=== PATIENT | female | born 1995 | race Caucasian/White ===

== ENCOUNTER 2018-07-10 13:03 | Emergency (ER) | payer SELFPAY ==
--- NOTE | 2018-07-10 13:08 | ER Report ---
History and Physical Time Seen By MD: 13:09 HPI/ROS This is a 22-year-old female otherwise healthy with no previous pregnancies who presents to the emergency department with menses like cramping pelvic pain and a positive home test. She denies any vaginal bleeding. Her last menstrual period was 06/11/2018. She has not had a previous ectopic, never had PID, and does not have an IUD in place. She states that the cramping pelvic pain feels like a menstrual cramp. It is worse at night. She called her primary care physician who counseled her to come to the emergency department for evaluation. Remainder of the 14 system rev: Yes Allergies: Coded Allergies: No Known Drug Allergies (Unverified , 07/10/18) Home Meds No Active Prescriptions or Reported Meds Reviewed Nurses Notes: Yes Old Medical Records Reviewed: Yes Hx Smoking: No Smoking Status: Never Smoker Exposure to Second Hand Smoke?: No Hx Substance Use Disorder: No Hx Alcohol Use: No Constitutional Vital Sign - Last 24 Hours 07/10/18 07/10/18 07/10/18 07/10/18 13:09 13:12 13:18 13:30 Temp 98.4 Pulse 117 103 Resp 18 B/P (MAP) 135/83 135/83 (100) 120/83 (95) Pulse Ox 97 99 O2 Delivery Room Air 07/10/18 07/10/18 07/10/18 07/10/18 13:33 13:48 14:00 14:03 Pulse 102 99 93 B/P (MAP) 108/72 (84) Pulse Ox 98 98 99 07/10/18 07/10/18 07/10/18 07/10/18 14:18 14:33 14:48 14:53 Pulse ? 07/10/18 07/10/18 07/10/18 07/10/18 15:08 15:23 15:38 15:53 Pulse ? 07/10/18 07/10/18 07/10/18 16:08 16:23 16:38 Pulse ? Physical Exam General Appearance: The patient is alert, has no immediate need for airway protection and no current signs of toxicity. Eyes: Pupils equal and round no injection. Respiratory: Chest is non tender, lungs are clear to auscultation. Cardiac: regular rate and rhythm Gastrointestinal: Abdomen is soft and non tender, no masses, bowel sounds normal. Extremities have full range of motion and are non tender. Skin: No rashes or lesions. DIFFERENTIAL DIAGNOSIS: After history and physical exam differential diagnosis was considered for ectopic , abdominal infection, IUP. UTI Medical Decision Making Data Points Result Diagram: 07/10/18 1356 07/10/18 1356 Laboratory Hematology Test 07/10/18 13:13 07/10/18 13:56 Urine Color Yellow Urine Clarity Slightly-cloudy Urine pH 5.0 pH (4.8-9.5) Urine Specific [place] 1.019 Urine Protein Negative mg/dL (NEGATIVE) Urine Glucose (UA) Negative mg/dL (NEGATIVE) Urine Ketones Trace mg/dL (NEGATIVE) Urine Blood Small (NEGATIVE) Urine Nitrite Negative (NEGATIVE) Urine Bilirubin Negative (NEGATIVE) Urine Urobilinogen 2.0 mg/dL (0.2-1.9) Urine Leukocyte Esterase Trace (NEGATIVE) Urine RBC 2 /HPF (0-2/HPF) Urine WBC 1 /HPF (0-5/HPF) Urine Squamous Epithelial Cells Many /LPF (</=FEW) Urine Bacteria Few /HPF (NONE-FEW) Urine Mucus Few /HPF (NONE-FEW) Red Blood Count 4.64 M/uL (4.17-5.56) Mean Corpuscular Volume 95.7 fL (80.0-96.0) Mean Corpuscular Hemoglobin 32.9 pg (26.0-33.0) Mean Corpuscular Hemoglobin Concent 34.4 g/dL (32.0-36.0) Red Cell Distribution Width 13.0 % (11.5-14.5) Mean Platelet Volume 7.0 fL (7.2-11.1) Neutrophils (%) (Auto) 77.9 % (39.4-72.5) Lymphocytes (%) (Auto) 17.0 % (17.6-49.6) Monocytes (%) (Auto) 4.6 % (4.1-12.4) Eosinophils (%) (Auto) 0.2 % (0.4-6.7) Basophils (%) (Auto) 0.3 % (0.3-1.4) Nucleated RBC Relative Count (auto) 0.0 /100WBC Neutrophils # (Auto) 7.0 K/uL (2.0-7.4) Lymphocytes # (Auto) 1.5 K/uL (1.3-3.6) Monocytes # (Auto) 0.4 K/uL (0.3-1.0) Eosinophils # (Auto) 0.0 K/uL (0.0-0.5) Basophils # (Auto) 0.0 K/uL (0.0-0.1) Nucleated RBC Absolute Count (auto) 0.00 K/uL Sodium Level 142 mmol/L (137-145) Potassium Level 3.2 mmol/L (3.5-5.0) Chloride Level 105 mmol/L (98-107) Carbon Dioxide Level 23 mmol/L (22-31) Blood Urea Nitrogen 10 mg/dl (7-18) Creatinine 0.70 mg/dl (0.52-1.04) Glomerular Filtration Rate Calc > 60.0 Random Glucose 96 mg/dl (75-110) Calcium Level 10.1 mg/dl (8.4-10.2) Total Bilirubin 0.2 mg/dl (0.2-1.3) Aspartate Amino Transf (AST/SGOT) 22 U/L (0-35) Alanine Aminotransferase (ALT/SGPT) 26 U/L (0-56) Alkaline Phosphatase 63 U/L (0-126) Total Protein 7.7 g/dl (6.3-8.2) Albumin 4.7 g/dl (3.5-5.0) Human Chorionic Gonadotropin, Quant 700 mIU/ml Chemistry Test 07/10/18 13:13 07/10/18 13:56 Urine Color Yellow Urine Clarity Slightly-cloudy Urine pH 5.0 pH (4.8-9.5) Urine Specific [place] 1.019 Urine Protein Negative mg/dL (NEGATIVE) Urine Glucose (UA) Negative mg/dL (NEGATIVE) Urine Ketones Trace mg/dL (NEGATIVE) Urine Blood Small (NEGATIVE) Urine Nitrite Negative (NEGATIVE) Urine Bilirubin Negative (NEGATIVE) Urine Urobilinogen 2.0 mg/dL (0.2-1.9) Urine Leukocyte Esterase Trace (NEGATIVE) Urine RBC 2 /HPF (0-2/HPF) Urine WBC 1 /HPF (0-5/HPF) Urine Squamous Epithelial Cells Many /LPF (</=FEW) Urine Bacteria Few /HPF (NONE-FEW) Urine Mucus Few /HPF (NONE-FEW) White Blood Count 8.9 k/uL (4.5-11.0) Red Blood Count 4.64 M/uL (4.17-5.56) Hemoglobin 15.3 g/dL (12.0-16.0) Hematocrit 44.5 % (34.0-47.0) Mean Corpuscular Volume 95.7 fL (80.0-96.0) Mean Corpuscular Hemoglobin 32.9 pg (26.0-33.0) Mean Corpuscular Hemoglobin Concent 34.4 g/dL (32.0-36.0) Red Cell Distribution Width 13.0 % (11.5-14.5) Platelet Count 273 K/uL (150-450) Mean Platelet Volume 7.0 fL (7.2-11.1) Neutrophils (%) (Auto) 77.9 % (39.4-72.5) Lymphocytes (%) (Auto) 17.0 % (17.6-49.6) Monocytes (%) (Auto) 4.6 % (4.1-12.4) Eosinophils (%) (Auto) 0.2 % (0.4-6.7) Basophils (%) (Auto) 0.3 % (0.3-1.4) Nucleated RBC Relative Count (auto) 0.0 /100WBC Neutrophils # (Auto) 7.0 K/uL (2.0-7.4) Lymphocytes # (Auto) 1.5 K/uL (1.3-3.6) Monocytes # (Auto) 0.4 K/uL (0.3-1.0) Eosinophils # (Auto) 0.0 K/uL (0.0-0.5) Basophils # (Auto) 0.0 K/uL (0.0-0.1) Nucleated RBC Absolute Count (auto) 0.00 K/uL Glomerular Filtration Rate Calc > 60.0 Calcium Level 10.1 mg/dl (8.4-10.2) Total Bilirubin 0.2 mg/dl (0.2-1.3) Aspartate Amino Transf (AST/SGOT) 22 U/L (0-35) Alanine Aminotransferase (ALT/SGPT) 26 U/L (0-56) Alkaline Phosphatase 63 U/L (0-126) Total Protein 7.7 g/dl (6.3-8.2) Albumin 4.7 g/dl (3.5-5.0) Human Chorionic Gonadotropin, Quant 700 mIU/ml Urinalysis Test 07/10/18 13:13 Urine Color Yellow Urine Clarity Slightly-cloudy Urine pH 5.0 pH (4.8-9.5) Urine Specific [place] 1.019 Urine Protein Negative mg/dL (NEGATIVE) Urine Glucose (UA) Negative mg/dL (NEGATIVE) Urine Ketones Trace mg/dL (NEGATIVE) Urine Blood Small (NEGATIVE) Urine Nitrite Negative (NEGATIVE) Urine Bilirubin Negative (NEGATIVE) Urine Urobilinogen 2.0 mg/dL (0.2-1.9) Urine Leukocyte Esterase Trace (NEGATIVE) Urine RBC 2 /HPF (0-2/HPF) Urine WBC 1 /HPF (0-5/HPF) Urine Squamous Epithelial Cells Many /LPF (</=FEW) Urine Bacteria Few /HPF (NONE-FEW) Urine Mucus Few /HPF (NONE-FEW) ED Course/Re-evaluation ED Course 22-year-old female with a positive home test and subsequently a quantitative HCG in the s in the emergency department. She has no ectopic risk factors. No vaginal bleeding, and pain is described as similar to menstrual cramps. A pelvic ultrasound reveals no evidence of an ectopic and sees a possible small gestational sac in the uterus, however no confirmed IUP at this time. The ultrasound findings are consistent with her last menstrual period as well as her quantitative hCG. I do not think she is at high risk for an ectopic , however I told her an ectopic was not ruled out at this point. I counseled her to return to the emergency department if her pain worsens or if she develops vaginal bleeding greater than a normal menstrual period. She is otherwise going to get a repeat quantitative HCG on Friday. She will follow-up with those results with the [facility]. I counseled her to buy [id number] vitamins, abstain from alcohol, and drink plenty of fluids. Decision to Disposition Date: Jul 10, 2018 Decision to Disposition Time: 17:01 Depart Departure Latest Vital Signs Vital Signs Date Time Temp Pulse Resp B/P (MAP) Pulse Ox O2 Delivery O2 Flow Rate FiO2 07/10/18 16:38 ??? 07/10/18 14:03 99 07/10/18 14:00 108/72 (84) 07/10/18 13:09 98.4 18 Room Air Impression: Primary Impression: Pelvic pain during in first trimester, antepartum Condition: Improved Disposition: HOME OR SELF-CARE New Scripts No Active Prescriptions or Reported Meds Patient Instructions: First Trimester (ED) LACHO SOUZA MD Jul 10, 2018 13:08
[2018-07-10] MEDS ORDERED: NS(*) 0.9% 1000 ML BAG 1,000 ML IV ONE (13:35)
[2018-07-10 14:00] VITALS: BP 108/72
[2018-07-10 14:04] LABS: PLATELET COUNT, AUTOMATED 273 K/uL (150-450)
--- NOTE | 2018-07-10 15:52 | RADIOLOGY IMAGING REPORT ---
FACILITY: [facility] - [place] PATIENT NAME: Lisa Orlando : 1995 MR: [id number] V: [id number] EXAM DATE: ORDERING PHYSICIAN: LACHO SOUZA TECHNOLOGIST: Location: [facility] - [place] Patient: Lisa Orlando : 1995 Visit/Account:[id number] Date of Sevice: 07/10/2018 Exam type: OB TRANSVAGINAL History: Abdomen pain, quantitative hCG level of 700 Comparison: None. Findings: There is a thickened heterogeneous endometrium measuring 1.2 cm in thickness. There is a double wall sac within the endometrium with a mean sac diameter of 2.3 mm which would be consistent with a gesta tional age of four weeks and five days. A pole or yolk sac are not identified. There is a mild amount of free pelvic fluid. Right ovary measures 3 x 2.4 x 3.4 cm and contains a slightly prevascular 1.9 x 1.8 x 1.8 cm slightly hypoechoic solid appearing structure. Left ovary measures 2.2 x 1.7 x 2.9 cm. Arterial and venous flow was demonstrated to both ovary. IMPRESSION: 1. There Is heterogeneous thickened endometrium containing a double walled sac with a mean sac diamet er of 2.3 mm. This would be consistent with a gestational age of four weeks and five days however fe joy pole and yolk sac are not identified. Continued surveillance of patient's hCG level and a follow -up pelvic ultrasound is recommended to sure an intrauterine gestation. Small amount of free pelvic fluid 1.9 cm slightly hypoechoic mildly hypervascular structure in the right ovary. This is not likely an ectopic however since viable IUP has not yet been continued follow-up recommended Report Dictated By: Samira Michel MD at 07/10/2018 3:38 PM Report E-Signed By: Samira Michel MD at 07/10/2018 3:48 PM WSN:[email or web address]
== END 2018-07-10 17:10 | disposition home or self-care (01) ==
LOC: ER 13:15
DX: O26.891 Other specified pregnancy related conditions, first trimester (principal)
CPT/HCPCS: 36415; 76817; 81001; 82040; 82247; 82310; 82374; 82435; 82565; 82947; 84075; 84132; 84155; 84295; 84450; 84460; 84520; 84702; 85025

== ENCOUNTER → 2018-07-24 | Outpatient (CLI) | payer SELFPAY ==
[~2018-07-24] MED LIST: PREN-127 PO; SODI1TAB2 PO
[2018-07-24 10:36] LABS: PLATELET COUNT, AUTOMATED 259 K/uL (150-450)
== END ==
LOC: LAB 08:43
PROVIDERS: ATTEND Obstetrics & Gynecology
DX: Z34.91 Encounter for supervision of normal pregnancy, unspecified, first trimester (principal); O26.891 Other specified pregnancy related conditions, first trimester
CPT/HCPCS: 36415; 81001; 84702; 85025; 86592; 86703; 86762; 86850; 86900; 86901; 87088; 87340

== ENCOUNTER → 2018-07-27 | Outpatient (CLI) | payer SELFPAY ==
--- NOTE | 2018-07-27 14:03 | RADIOLOGY IMAGING REPORT ---
FACILITY: [facility] - [place] PATIENT NAME: Lisa Orlando : 1995 MR: [id number] V: [id number] EXAM DATE: ORDERING PHYSICIAN: JAVIER IVERSON TECHNOLOGIST: Location: [facility] Patient: Lisa Orlando : 1995 Visit/Account:[id number] Date of Sevice: 07/27/2018 Transvaginal OB Ultrasound HISTORY: INCONCULSIVE VIABILITY, PELVIC PAIN COMPARISON: July 10, 2018 TECHNIQUE: Transvaginal imaging was performed for detailed assessment of the uterus, , and o varies. FINDINGS: Gestational sac: Single, intrauterine, and unremarkable Yolk sac: Visualized. Embryo: Visualized. Embryonic cardiac activity: 120 bpm Estimated gestational age by LMP. LMP not provided Ultrasound age: crown-rump length is six weeks and three days Subchorionic hemorrhage: None visualized. Uterus: Gravid, otherwise unremarkable. Maternal ovaries: Right ovary measures 1.78 x 2.81 x 1.64 cm. Vascular flow is demonstrated to the r ight ovary.. In the right ovary there is a 1.9 x 1.5 x 1.6 cm isoechoic mass with peripheral vascula rity appears slightly less prominent when compared the prior study Left ovary measures 2.4 x 3.4 x 1.1 cm with normal vascular flow Adnexa: Negative Free pelvic fluid: None. IMPRESSION: There is a single viable intrauterine with an estimated gestational age of six weeks and th ree days by crown-rump length There is a 1.9 x 1.5 x 1.6 and meter isoechoic mass with peripheral vascularity in the right ovary ap pears slightly less prominent when compared the prior study Report Dictated By: Samira Michel MD at 07/27/2018 1:47 PM Report E-Signed By: Samira Michel MD at 07/27/2018 1:59 PM WSN:[email or web address]
== END ==
LOC: RAD 09:44
PROVIDERS: ATTEND Obstetrics & Gynecology
DX: N83.9 Noninflammatory disorder of ovary, fallopian tube and broad ligament, unspecified (principal)

== ENCOUNTER 2018-08-10 01:19 | Emergency (ER) | payer SELFPAY ==
[2018-08-10] MEDS ORDERED: KETOROLAC 15 MG/ML VIAL IVP ONE (01:40)
--- NOTE | 2018-08-10 01:49 | ER Report ---
History and Physical Time Seen By MD: 01:25 Hx. of Stated Complaint: MISCARRAIGE HPI/ROS CHIEF COMPLAINT: miscarriage HISTORY OF PRESENT ILLNESS: Pt started with vaginal bleeding on 07/30 and has been followed by Dr. Manning for threatened . Pt has been getting multiple US. last us was 08/06 which showed a slowing heart rate of 90-100. PT tonight started with severe cramping. Went to bathroom and passed some clots then passed a clear sac that appeared to contain baby. Pt came to ed with the contents . still with cramping and passing clots similar to "a bad period". REVIEW OF SYSTEMS: Constitutional: No fever, no chills. Eyes: No discharge. ENT: No sore throat. Cardiovascular: No chest pain, no palpitations. Respiratory: No cough, no shortness of breath. Gastrointestinal: + abdominal pain, + vaginal bleeding, no vomiting. Genitourinary: No hematuria. Musculoskeletal: No back pain. Skin: No rashes. Neurological: No headache. Allergies: Coded Allergies: No Known Drug Allergies (Unverified , 08/10/18) Home Meds Reported Medications Sodium Bicarbonate/Sodium Cit (MAE-SELTZER HEARTBURN TAB EFF) 1 Each Tablet.eff, 1 EACH PO 07/24/18 Vits W-Ca,Fe,Fa(<1MG) ( VITAMINS) 1 Each Tablet, 1 EACH PO DAILY, TAB 07/24/18 Past Medical/Surgical History pmhx: adhd, anemia Pshx: plastic surgery secondary to dog bite Reviewed Nurses Notes: Yes Old Medical Records Reviewed: Yes Hx Smoking: No Smoking Status: Current: Every Day Smoker Exposure to Second Hand Smoke?: Yes Hx Substance Use Disorder: No Hx Alcohol Use: No Constitutional Vital Sign - Last 24 Hours 08/10/18 08/10/18 08/10/18 08/10/18 01:19 01:29 01:30 01:34 Temp 98.1 Pulse ??? 89 ??? Resp 18 B/P (MAP) 117/77 117/77 (90) Pulse Ox 93 99 O2 Delivery Room Air Physical Exam General Appearance: The patient is alert, has no immediate need for airway protection and no signs of toxicity. Eyes: Pupils equal and round no pallor or injection, EOMI ENT: no pharyngeal erythema or exudates, Mucous membranes are moist Respiratory: There are no retractions, lungs are clear to auscultation. Cardiovascular: Regular rate and rhythm. pulses are equal and symmetrical Gastrointestinal: Abdomen is soft and non tender, no masses, bowel sounds normal, no guarding, no rigidity or rebound Pelvic: + clots and approx 5m blood in vaginal vault; + clot in OS which was removed with ring forceps. Neurological: Cranial nerves II-XII grossly intact, no sensory or motor loss Skin: Warm and dry, no rashes. Musculoskeletal: Neck is supple non tender, no vertebral tenderness Extremities are nontender, non swollen and have full range of motion. DIFFERENTIAL DIAGNOSIS: After history and physical exam differential diagnosis was considered for complete miscarriage, retained products Medical Decision Making Data Points Result Diagram: 08/10/18 0151 Laboratory Hematology Test 08/10/18 01:51 Red Blood Count 4.28 M/uL (4.17-5.56) Mean Corpuscular Volume 95.1 fL (80.0-96.0) Mean Corpuscular Hemoglobin 32.5 pg (26.0-33.0) Mean Corpuscular Hemoglobin Concent 34.1 g/dL (32.0-36.0) Red Cell Distribution Width 12.3 % (11.5-14.5) Mean Platelet Volume 7.0 fL (7.2-11.1) Neutrophils (%) (Auto) 70.1 % (39.4-72.5) Lymphocytes (%) (Auto) 24.0 % (17.6-49.6) Monocytes (%) (Auto) 4.5 % (4.1-12.4) Eosinophils (%) (Auto) 1.1 % (0.4-6.7) Basophils (%) (Auto) 0.3 % (0.3-1.4) Nucleated RBC Relative Count (auto) 0.0 /100WBC Neutrophils # (Auto) 6.1 K/uL (2.0-7.4) Lymphocytes # (Auto) 2.1 K/uL (1.3-3.6) Monocytes # (Auto) 0.4 K/uL (0.3-1.0) Eosinophils # (Auto) 0.1 K/uL (0.0-0.5) Basophils # (Auto) 0.0 K/uL (0.0-0.1) Nucleated RBC Absolute Count (auto) 0.00 K/uL Human Chorionic Gonadotropin, Quant 2213 mIU/ml Chemistry Test 08/10/18 01:51 White Blood Count 8.7 k/uL (4.5-11.0) Red Blood Count 4.28 M/uL (4.17-5.56) Hemoglobin 13.9 g/dL (12.0-16.0) Hematocrit 40.7 % (34.0-47.0) Mean Corpuscular Volume 95.1 fL (80.0-96.0) Mean Corpuscular Hemoglobin 32.5 pg (26.0-33.0) Mean Corpuscular Hemoglobin Concent 34.1 g/dL (32.0-36.0) Red Cell Distribution Width 12.3 % (11.5-14.5) Platelet Count 222 K/uL (150-450) Mean Platelet Volume 7.0 fL (7.2-11.1) Neutrophils (%) (Auto) 70.1 % (39.4-72.5) Lymphocytes (%) (Auto) 24.0 % (17.6-49.6) Monocytes (%) (Auto) 4.5 % (4.1-12.4) Eosinophils (%) (Auto) 1.1 % (0.4-6.7) Basophils (%) (Auto) 0.3 % (0.3-1.4) Nucleated RBC Relative Count (auto) 0.0 /100WBC Neutrophils # (Auto) 6.1 K/uL (2.0-7.4) Lymphocytes # (Auto) 2.1 K/uL (1.3-3.6) Monocytes # (Auto) 0.4 K/uL (0.3-1.0) Eosinophils # (Auto) 0.1 K/uL (0.0-0.5) Basophils # (Auto) 0.0 K/uL (0.0-0.1) Nucleated RBC Absolute Count (auto) 0.00 K/uL Human Chorionic Gonadotropin, Quant 2213 mIU/ml ED Course/Re-evaluation ED Course check quant, cbc and call ob 08/10/2018 2:28:[address] Mcknight and reviewed case. Recommend i start patient on methergine 0.2mg now and one every 6 hours for total of 4 dosages. since bleeding at this time is controlled she did not feel US is warranted. She will follow up with patient in office today. She would like the specimen sent for products of conception if pt allows. 08/10/2018 2:49:35 am PT is very tearful and does not want to give up her POC to pathology "i know its weird but i am not ready to let it go" . will give her methergine now and 3 more pills to go. Decision to Disposition Date: Aug 10, 2018 Decision to Disposition Time: 02:51 Depart Departure Latest Vital Signs Vital Signs Date Time Temp Pulse Resp B/P (MAP) Pulse Ox O2 Delivery O2 Flow Rate FiO2 08/10/18 01:34 ??? 99 08/10/18 01:30 117/77 (90) 08/10/18 01:29 98.1 18 Room Air Impression: Primary Impression: Miscarriage Condition: Condition Unchanged Disposition: HOME OR SELF-CARE Referrals: LAUREN GUSTAFSON APRN (PCP) JAVIER MCKNIGHT MD 1 Day Patient Instructions: Miscarriage (ED) Additional Instructions: I spoke with Dr. Mcknight who would like to see you in office today. Methergine every 6 hours for 4 dosages. We gave you your first pill at 3am. This will hopefully slow down your bleeding. If your bleeding increases or you become symptomatic (light headed, feel like your going to faint, increased bleeding) then please return to emergency department. DIEGO LUNA DO Aug 10, 2018 01:48
[2018-08-10 02:04] LABS: PLATELET COUNT, AUTOMATED 222 K/uL (150-450)
[2018-08-10] MEDS ORDERED: METHYLERGONOVINE MAL 0.2MG TAB PO ONE ×2 (02:35→03:00)
[2018-08-13] MEDS ORDERED: MISO200T59 PO (12:03)
== END 2018-08-10 03:10 | disposition home or self-care (01) ==
LOC: ER 01:26
DX: O03.9 Complete or unspecified spontaneous abortion without complication (principal); Z3A.08 8 weeks gestation of pregnancy
CPT/HCPCS: 84702; 85025; 96374; 99283; J1885

== ENCOUNTER → 2018-08-19 | Outpatient (CLI) | payer SELFPAY ==
[~2018-08-19] MED LIST changes: +MISO200T59 PO
== END ==
LOC: LAB 13:36
PROVIDERS: ATTEND Student in an Organized Health Care Education/Training Program
DX: O03.9 Complete or unspecified spontaneous abortion without complication (principal)
CPT/HCPCS: 36415; 84702